=== PATIENT | female | born 1985 | race African-American/Black ===

== ENCOUNTER 2018-07-26 09:37 | Emergency (ER) | payer BC, SELFPAY ==
[2018-07-26] MEDS ORDERED: Lorazepam 0.5 MG TAB ONE (09:58)
[2018-07-26] MEDS ORDERED: Acetaminophen 500 MG TAB ONE (10:31)
== END 2018-07-26 10:51 | disposition home or self-care (01) ==
LOC: BURERS 09:37
DX: F41.0 Panic disorder [episodic paroxysmal anxiety] (principal); G43.909 Migraine, unspecified, not intractable, without status migrainosus; J45.909 Unspecified asthma, uncomplicated
CPT/HCPCS: 99283